=== PATIENT | male | born 1950 | race Caucasian/White ===

== ENCOUNTER → 2016-06-21 | Outpatient (CLI) | payer OTHER ==
--- NOTE | 2016-06-21 13:35 | Diagnostic Imaging Report ---
PA and lateral views of the chest. INDICATION: Bradycardia. FINDINGS: The lungs are clear. Mild density in the left lung base is probably related to prominent pericardial fat pad. The heart size is at the upper limits of normal. No effusion or pneumothorax. The mediastinum and binh appear unremarkable. Mild degenerative changes and flowing anterior osteophytes are seen in the thoracic spine. IMPRESSION: No acute process. Dictated by: Dictated on workstation # [id number]
== END ==
LOC: RAD 13:17
PROVIDERS: ATTEND Nurse Practitioner Adult Health
DX: R00.1 Bradycardia, unspecified (principal)
CPT/HCPCS: 71020

== ENCOUNTER → 2016-07-04 | Outpatient (CLI) | payer OTHER | LOC: CARD 10:54 | PROVIDERS: ATTEND Internal Medicine Cardiovascular Disease | DX: R26.89 Other abnormalities of gait and mobility (principal); R07.89 Other chest pain; I10 Essential (primary) hypertension; Z87.891 Personal history of nicotine dependence; I45.19 Other right bundle-branch block; Z86.79 Personal history of other diseases of the circulatory system | CPT/HCPCS: 93225; 93226 ==

== ENCOUNTER → 2016-07-04 | Outpatient (CLI) | payer OTHER ==
--- NOTE | 2016-07-04 19:15 | ECHOCARDIOGRAPHY REPORT ---
DATE OF SERVICE: 07/04/2016 ECHOCARDIOGRAM ORDERING PHYSICIAN: Dr. Shane. PRIMARY CARE PROVIDER: Chapo Morales APRN CLINICAL DIAGNOSES: Chest discomfort, hypertension, tobacco use, right bundle-branch block. MEASUREMENTS: Left atrium, 3.9. Aortic root, 3.9. LV diameter diastolic, 4.6. IVS thickness, diastolic, 1.1. LVPW thickness, diastolic, 1.8. DESCRIPTION: This is a technically somewhat difficult study. Global left ventricular systolic function appears normal. On the views available, no distinct regional wall motion abnormalities seen. There is mild to moderate aortic valve sclerosis and calcification. There is no significant pericardial effusion seen on this study. Aortic valve structure is not very well visualized. Doppler imaging shows trivial tricuspid and pulmonic regurgitation. Pulmonary artery systolic pressure is estimated to be approximately 30 mmHg. Doppler imaging also shows trivial mitral regurgitation. There is no Doppler evidence of significant valvular stenosis. Subcostal views are not available. The study is not adequate for evaluation for intracardiac shunt. CONCLUSIONS: 1. Normal global left ventricular systolic function with ejection fraction approximately 60%. 2. Aortic valve sclerosis without significant aortic stenosis. 3. Trivial mitral, tricuspid and pulmonic regurgitation. 4. No evidence of significant valvular stenosis. 5. Pulmonary artery systolic pressure is estimated to be 30 to 35 mmHg. Job ID: [id number] DocumentID: [id number] Dictated Date: 07/04/2016 15:42:54 Atmospheric Chemist Date: 07/04/2016 17:19:50 Dictated By: DERICK SHANE MD, MA, FACP, FACC,
== END ==
LOC: CARD 10:51
PROVIDERS: ATTEND Internal Medicine Cardiovascular Disease
DX: R26.89 Other abnormalities of gait and mobility (principal); R07.89 Other chest pain; I10 Essential (primary) hypertension; Z87.891 Personal history of nicotine dependence; I45.19 Other right bundle-branch block; Z86.79 Personal history of other diseases of the circulatory system
CPT/HCPCS: 93306

== ENCOUNTER 2016-09-26 07:01 | Day surgery (SDC) | payer OTHER ==
[~2016-09-26] VITALS: Ht 182.9 cm; Wt 105.2 kg
[2016-09-26] MEDS ORDERED: HEParin (CATH LAB) 2,000 ML IV ONE (07:11)
[2016-09-26] MEDS ORDERED: NS IV 1000 ML 1,000 ML ONE (07:11)
[2016-09-26] MEDS ORDERED: NS IV 1000 ML 1,000 ML IV SCH ×2 (07:15→10:46)
[2016-09-26 07:30] VITALS: BP 174/92
[2016-09-26 07:38] LABS: RED BLOOD COUNT 4.97 10^6/uL (4.35-5.85); RED CELL DISTRIBUTION WIDTH 13.5 % (10.0-14.5); WHITE BLOOD COUNT 7.9 10^3/uL (4.3-11.0)
[2016-09-26 07:47] LABS: INR 0.9 (0.8-1.4); PROTHROMBIN TIME PATIENT 12.4 SEC (12.2-14.7)
[2016-09-26] MEDS ORDERED: OMEG-160 PO (07:51)
[2016-09-26] MEDS ORDERED: ASPI-586 PO (07:51)
[2016-09-26] MEDS ORDERED: ATEN50TA PO (07:51)
[2016-09-26] MEDS ORDERED: LISI40TA PO (07:51)
[2016-09-26] MEDS ORDERED: SIMV40TA4 PO (07:51)
[2016-09-26] MEDS ORDERED: MIDAZOLAM 5 MG/5 ML (VERSED) VIAL ONE (07:55)
[2016-09-26] MEDS ORDERED: fentaNYL INJECTION 100 MCG/2 ML AMP ONE ×2 (07:55→09:57)
[2016-09-26] MEDS ORDERED: diphenhydrAMINE 50 MG/ML INJ (BENADRYL) ONE (07:55)
[2016-09-26 07:56] LABS: ALANINE AMINOTRANSFERASE 29 U/L (0-55); ALBUMIN 4.2 GM/DL (3.2-4.5); ANION GAP 10 MMOL/L (5-14); ASPARTATE AMINO TRANSFERASE 20 U/L (5-34); BILIRUBIN,TOTAL 0.4 MG/DL (0.1-1.0); BLOOD UREA NITROGEN 15 MG/DL (7-18); BUN/CREATININE RATIO 17; CALCIUM 9.4 MG/DL (8.5-10.1); CARBON DIOXIDE 24 MMOL/L (21-32); CHLORIDE 106 MMOL/L (98-107); CHOLESTEROL 167 MG/DL (< 200); DIRECT LDL 115 MG/DL (1-129); GFR ESTIMATED > 60; GLUCOSE 120 MG/DL (70-105); POTASSIUM 3.9 MMOL/L (3.6-5.0); SODIUM 140 MMOL/L (135-145); TOTAL PROTEIN 7.1 GM/DL (6.4-8.2); TRIGLYCERIDES 64 MG/DL (<150); VLDL CHOLESTEROL 13 MG/DL (5-40)
[2016-09-26] MEDS ORDERED: SILD100T PO (08:59)
[2016-09-26] MEDS ORDERED: NITROGLYCERIN DRIP 25 MG/D5W 0 ML IV ONE (09:25)
[2016-09-26] MEDS ORDERED: HEParin 1000 UNIT/ML (10ML VIAL) FOR BOLUS ONE (09:25)
[2016-09-26] MEDS ORDERED: NS (IVPB) 250 ML ONE (10:08)
[2016-09-26] MEDS ORDERED: niCARdipine 25 MG/10 ML (CARDENE) AMP IV ONE (10:08)
--- OUTSIDE RECORDS SUMMARY | 2016-09-26 10:24 | XMS REPORT | Continuity of Care Document ---
Author Author [facility] Organization [facility] Address Unknown Phone Unavailable Allergies Medications Problems Date Dx Coded Attending Type Code Diagnosis Diagnosed By 06/21/2016 GILBERTO JOHNSON SPEECH TEACHER Ot 729.5 PAIN IN LIMB 06/30/2016 ALEXGILBERTO SPEECH TEACHER Ot 729.5 PAIN IN LIMB 06/30/2016 ALEX, GILBERTO SPEECH TEACHER Ot R00.1 BRADYCARDIA, UNSPECIFIED 06/30/2016 ALEX, GILBERTO SPEECH TEACHER Ot R00.1 BRADYCARDIA, UNSPECIFIED 07/04/2016 ALEX, GILBERTO SPEECH TEACHER Ot R00.1 BRADYCARDIA, UNSPECIFIED 07/04/2016 ALEX, GILBERTO SPEECH TEACHER Ot R00.1 BRADYCARDIA, UNSPECIFIED 07/07/2016 ALEX, GILBERTO SPEECH TEACHER Ot R00.1 BRADYCARDIA, UNSPECIFIED 07/11/2016 ALBERTO FLORES FACC, DERICK SERVINP CCDS Ot I10 ESSENTIAL (PRIMARY) HYPERTENSION 07/11/2016 ALBERTO FLORES FACC, DERICK SERVINP CCDS Ot I45.19 OTHER RIGHT BUNDLE-BRANCH BLOCK 07/11/2016 ALBERTO FLORES FACC, DERICK SERVINP CCDS Ot R07.89 OTHER CHEST PAIN 07/11/2016 ALBERTO FLORES FACC, DERICK FACP CCDS Ot R26.89 OTHER ABNORMALITIES OF GAIT AND MOBILITY 07/11/2016 ALBERTO FLORES FACC, DERICK FACP CCDS Ot Z86.79 PERSONAL HISTORY OF OTHER DISEASES OF TH 07/11/2016 DERICK DOMINGUEZ MD, FACC FACP CCDS Ot Z87.891 PERSONAL HISTORY OF NICOTINE DEPENDENCE 07/11/2016 GILBERTO JOHNSON SPEECH TEACHER Ot 729.5 PAIN IN LIMB 07/11/2016 GILBERTO JOHNSON SPEECH TEACHER Ot R00.1 BRADYCARDIA, UNSPECIFIED 07/11/2016 DERICK DOMINGUEZ MD, FACCP CCDS Ot I10 ESSENTIAL (PRIMARY) HYPERTENSION 07/11/2016 DERICK DOMINGUEZ MD, FACCP CCDS Ot I45.19 OTHER RIGHT BUNDLE-BRANCH BLOCK 07/11/2016 ALBERTO MD FACC, ALI FACP CCDS Ot R07.89 OTHER CHEST PAIN 07/11/2016 ALBERTO SERVINC, ALI FACP CCDS Ot R26.89 OTHER ABNORMALITIES OF GAIT AND MOBILITY 07/11/2016 ALBERTO FLORES FACC, ALI FACP CCDS Ot Z86.79 PERSONAL HISTORY OF OTHER DISEASES OF 07/11/2016 ALBERTO FLORES FACC, ALI FACP CCDS Ot Z87.891 PERSONAL HISTORY OF NICOTINE DEPENDENCE 07/11/2016 ALBERTO FLORES FACC, ALI FACP CCDS Ot I10 ESSENTIAL (PRIMARY) HYPERTENSION 07/11/2016 ALBERTO FLORES FACC, ALI FACP CCDS Ot I45.19 OTHER RIGHT BUNDLE-BRANCH BLOCK 07/11/2016 ALBERTO FLORES FACC, ALI FACP CCDS Ot R07.89 OTHER CHEST PAIN 07/11/2016 ALBERTO FLORES FACC, ALI FACP CCDS Ot R26.89 OTHER ABNORMALITIES OF GAIT AND MOBILITY 07/11/2016 ALBERTO FLORES FACC, ALI FACP CCDS Ot Z86.79 PERSONAL HISTORY OF OTHER DISEASES OF 07/11/2016 ALBERTO FLORES FACC, ALI FACP CCDS Ot Z87.891 PERSONAL HISTORY OF NICOTINE DEPENDENCE 07/12/2016 ALBERTO FLORES FACC, ALI FACP CCDS Ot I10 ESSENTIAL (PRIMARY) HYPERTENSION 07/12/2016 ALBERTO FLORES FACC, ALI FACP CCDS Ot I45.19 OTHER RIGHT BUNDLE-BRANCH BLOCK 07/12/2016 ALBERTO FLORES FACC, ALI FACP CCDS Ot R07.89 OTHER CHEST PAIN 07/12/2016 ALBERTO FLORES FACC, ALI FACP CCDS Ot R26.89 OTHER ABNORMALITIES OF GAIT AND MOBILITY 07/12/2016 ALBERTO FLORES FACC, ALI FACP CCDS Ot Z86.79 PERSONAL HISTORY OF OTHER DISEASES OF 07/12/2016 ALBERTO FLORES FACC, ALI FACP CCDS Ot Z87.891 PERSONAL HISTORY OF NICOTINE DEPENDENCE 09/22/2016 GILBERTO JOHNSON Ot 729.5 PAIN IN LIMB 09/22/2016 GILBERTO JOHNSON Ot R00.1 BRADYCARDIA, UNSPECIFIED 09/22/2016 ALBERTO FLORES FACC, ALI FACP CCDS Ot I10 ESSENTIAL (PRIMARY) HYPERTENSION 09/22/2016 ALBERTO FLORES FACC, ALI FACP CCDS Ot I45.19 OTHER RIGHT BUNDLE-BRANCH BLOCK 09/22/2016 ALBERTO FLORES FACC, DERICK FACP CCDS Ot R07.89 OTHER CHEST PAIN 09/22/2016 ALBERTO FLORES FACC, DERICK FACP CCDS Ot R26.89 OTHER ABNORMALITIES OF GAIT AND MOBILITY 09/22/2016 ALBERTO FLORES FACC, DERICK FACP CCDS Ot Z86.79 PERSONAL HISTORY OF OTHER DISEASES OF TH 09/22/2016 DERICK DOMINGUEZ MD, FACC FACP CCDS Ot Z87.891 PERSONAL HISTORY OF NICOTINE DEPENDENCE Procedures Results Encounters ACCT No. Visit Date/Time Discharge Status Pt. Type Provider Facility Loc./Unit Complaint [id number] 07/06/2016 10:00:00 2016 23:59:59 CLS Preadmit DERICK DOMINGUEZ MD, FACC FACP CCDS [facility] CARD R26.89 CLAUDICATION [id number] 07/04/2016 10:54:00 2016 23:59:59 CLS Outpatient DERICK DOMINGUEZ MD, FACC FACP CCDS [facility] CARD R26.89 CLAUDICATION [id number] 07/04/2016 10:51:00 2016 23:59:59 CLS Outpatient DERICK DOMINGUEZ MD, FACC FACP CCDS [facility] CARD R26.89 CLAUDICATION [id number] 06/21/2016 13:17:00 2016 23:59:59 CLS Outpatient GILBERTO JOHNSON [facility] RAD BRADYCARDIA [id number] 10/16/2013 14:24:00 2013 23:59:59 CLS Outpatient GILBERTO JOHNSON [facility] RAD PAIN IN LOWER LIMBS [id number] 09/26/2016 08:00:00 PEN Preadmit DERICK DOMINGUEZ MD, FACC FACP CCDS [facility] CATH CLAUDICATION,PVD,BILAT LEG DISCOMFORT
[2016-09-26] MEDS ORDERED: CLOPIDOGREL 300 MG (PLAVIX) TABLET PO ONE (10:28)
[2016-09-26] MEDS ORDERED: ASPIRIN 81 MG CHEW (CHILDREN'S ASA) ONE (10:29)
--- NOTE | 2016-09-26 10:46 | Cardiac Procedure Note-CS/ASA ---
Pre-Procedure Note Pre-Op Procedure Note H&P Reviewed The H&P was reviewed, patient examined and no changes noted. Date H&P Reviewed: Sep 26, 2016 Time H&P Reviewed: 08:45 Conscious Sedation Pre-Proced Time Reviewed: 08:45 ASA Class: 3 Airway Mallampati Classification: (navajo appropriate class) I. II. III, IV Lungs Heart ASA score ASA 1: a normal healthy patient ASA 2: a patient with a mild systemic disease (mid diabetes, controlled hypertension, obesity ASA 3: a patient with a severe systemic disease that limits activity (angina , COPD, prior Myocardial infarction) ASA 4: a patient with an incapacitating disease that is a constant threat to life (CHF, renal failure) ASA 5: a moribund patient not expected to survive 24 hrs. (ruptured aneurysm) ASA 6: a declared brain patient whose organs are being harvested. For emergent operations, add the letter E after the classification Grade 3 Sedation Plan: Analgesia, Amnesia, Plan communicated to team members, Discussed options with patient/fam, Discussed risks with patient/fam Note The patient is an appropriate candidate to undergo the planned procedure, sedation, and anesthesia. The patient immediately re-assessed prior to indication. DERICK DOMINGUEZ MD FACP FAC CCDS Sep 26, 2016 10:46
[2016-09-26 10:49] VITALS: BP 120/75
[2016-09-26] MEDS ORDERED: PATIENT MAY USE OWN MEDS, ALL PO SCH (11:00)
[2016-09-26] MEDS ORDERED: ACETAMINOPHEN 325 MG TABLET/CAPLET (TYLENOL) PO PRN (11:00)
[2016-09-26 11:30] VITALS: BP 131/81
--- NOTE | 2016-09-26 11:49 | OPERATIVE REPORT ---
DATE OF SERVICE: 09/26/2016 PERIPHERAL ANGIOGRAPHY AND INTERVENTION REPORT PROCEDURE: Peripheral angiography and intervention. The patient a 66-year-old man who has leg claudication, considerably more on the right side, who was found to have moderate to severe peripheral arterial disease on noninvasive imaging. Peripheral angiography was carried out today. Informed consent was obtained for peripheral angiography and ad hoc peripheral intervention, if needed. PROCEDURE: The patient was brought to the cardiac catheterization laboratory in a fasting state. The left groin was prepared and draped in the usual sterile fashion. Lidocaine 1% local anesthesia. Modified Seldinger technique was used to advance a 5-German sheath in the right femoral artery. We performed abdominal aortic angiography with the pigtail catheter placed at the level of L1. We performed bilateral leg artery angiography with runoff to the level of the feet with the pigtail catheter placed at the level of the aortoiliac bifurcation. We then performed selective angiography of the right ostial common iliac artery with selective engagement with a crossover catheter (contralateral artery). We then advanced a Storq wire into the right superficial femoral artery and removed the crossover catheter and advanced a straight catheter into the mid portion of the right superficial femoral artery (contralateral artery) and performed selective angiography of the right superficial femoral artery with a runoff down to the level of the foot PERCUTANEOUS INTERVENTION TO THE RIGHT SUPERFICIAL FEMORAL ARTERY: We had noted approximately 70% long stenosis in the right superficial femoral artery. It was not clear if this was of hemodynamic significance. We performed a pullback across the lesion with a straight catheter. This indicated a pressure gradient across the lesion of 40 to 50 mmHg. This indicated that the lesion indeed was significant and probably in the range of 80 to 90%. Therefore, we proceeded with percutaneous intervention to the vessel because this leg is also associated with claudication. We advanced a long stork wire across the lesion and the tip was placed in the right popliteal artery and we were then able to exchange the 5-German sheath over this wire for a 45 cm 6-German sheath the tip of which was placed in the proximal portion of the right superficial femoral artery and we were then able to deliver balloons over the wire which was already in position. We carried out balloon angioplasty with an [place] 6.0 x 150 mm balloon and balloon angioplasty was carried out with this balloon in two stages to cover the entire lesion. Subsequent angiography revealed improvement of stenosis to approximately 30% residual. To further improve snf outcome, we then proceeded with drug-eluting ballooning of this long lesion with Lutonix 6.0 x 150 mm balloon. This was also accomplished and two stages. The balloon was then removed. Subsequent angiography revealed less than 20% stenosis at the previous site of 80-90% stenosis. For a short while, the flow appeared somewhat slower than what we started out with. Therefore, we gave 2 mg of intraarterial nicardipine and 1000 units of intraarterial heparin through the sheath. We had also given 7000 units of intravenous heparin at the beginning of the procedure. Following intraarterial nicardipine and heparin, the flow was normal and the flow was brisk down to the level of foot and the 80-90% stenosis was seen to be less than 20% in the left superficial femoral artery. At this point, we exchanged the 6-German sheath for a short 6-German sheath and carried out angiography of the left femoral artery and we were able to use Mynx with hemostasis. He tolerated the procedure well. ABDOMINAL AORTIC ANGIOGRAPHY: Abdominal aortic angiography indicated infrarenal abdominal aortic ectasia without significant aneurysm formation. There is atherosclerosis and calcification of the abdominal aorta and the proximal portion of the iliac arteries. There did not appear to be significant renal artery stenosis. The superior mesenteric and the celiac arteries are not visualized in the view obtained. BILATERAL LEG ARTERY ANGIOGRAPHY: Bilateral leg artery angiography indicated patent iliac arteries, patent common femoral arteries, patent superficial and deep femoral arteries on both sides. The superficial femoral artery on the right side had 80 to 90% stenosis (as detailed above) to which successful balloon angioplasty was carried out, including Lutonix drug-eluting ballooning with a reduction of stenosis to less than 20%. The left superficial femoral artery has notable up to 60% stenosis. The popliteal arteries are intact on both sides. On both sides, there is a 2-vessel runoff. The anterior tibial and the peroneal arteries are intact. The posterior tibial arteries appeared occluded or severely diseased on both sides. SELECTIVE ANGIOGRAPHY OF THE RIGHT COMMON ILIAC ARTERY: Selective angiography of the right common iliac artery indicates 30% ostial stenosis of the right common iliac. SELECTIVE ANGIOGRAPHY OF THE RIGHT SUPERFICIAL FEMORAL ARTERY: Selective angiography of the right superficial femoral artery showed approximately 70% mid vessel stenosis but we noted a pressure gradient across it of 40 to 50 mmHg indicating that this was probably an 80 to 90% lesion and subsequently, intervention was carried out to this lesion which is described above. The right popliteal artery is intact and there is 2-vessel runoff. The anterior tibial and the peroneal arteries appear intact and without significant disease. The posterior tibial artery is occluded or severely diseased CONCLUSIONS: 1. Peripheral arterial disease as detailed above. It mainly consists of 80-90% mid vessel stenosis in the right superficial femoral artery to which successful balloon angioplasty, including drug-eluting balloon angioplasty was carried out today with the reduction of stenosis to less than 20% and normal antegrade flow. There is bilateral occlusion of the posterior tibial arteries and there is a 2-vessel runoff in both legs. 2. The left superficial femoral artery has multiple, up to 60% stenoses. Job ID: [id number] DocumentID: [id number] Dictated Date: 09/26/2016 10:38:26 Patcher Helper Date: 09/26/2016 11:25:55 Dictated By: DERICK DOMINGUEZ MD, MA, FACP, FACC,
[2016-09-26 12:30] VITALS: BP 154/79
[2016-09-26 13:00] VITALS: BP 132/82
[2016-09-26] MEDS ORDERED: CLOP75TA28 PO (15:13)
--- NOTE | 2016-09-26 15:16 | Discharge Inst-Cardiology ---
Discharge Inst-Cardiac Discharge Medications New Medications: Clopidogrel Bisulfate (Clopidogrel) 75 Mg Tablet 75 MG PO DAILY, #30 TAB 1 Refill Continued Medications: Aspirin (Aspir 81) 81 Mg Tablet.dr 81 MG PO DAILY, TAB Atenolol (Atenolol) 50 Mg Tablet 50 MG PO DAILY, TAB Lisinopril (Lisinopril) 40 Mg Tablet 20 MG PO DAILY, TAB [place]-3/Dha/Epa/Fish Oil (Fish Oil 1,000 mg Softgel) 1 Each Capsule 1 EACH PO DAILY, CAP Sildenafil Citrate (Viagra) 100 Mg Tablet 100 MG PO PRN, TAB Simvastatin (Simvastatin) 40 Mg Tablet 20 MG PO, TAB New, Converted or Re-Newed RX: RX Given to Pt/Family Patient Instructions Patient Instructions: Please schedule f/u appt to see Dr. Shane in 2 weeks CLYDE HINOJOSA Sep 26, 2016 15:16
[2016-09-27] MEDS ORDERED: OMEGA 3 (FISH OIL) 1000 MG CAP PO SCH (09:00)
[2016-09-27] MEDS ORDERED: CLOPIDOGREL 75 MG (PLAVIX) TABLET PO SCH (09:00)
[2016-09-27] MEDS ORDERED: ASPIRIN E.C. 81 MG (ECOTRIN) TAB PO SCH (09:00)
[2016-09-27] MEDS ORDERED: lisINopril 20 MG (ZESTRIL) TAB PO SCH (09:00)
[2016-09-27] MEDS ORDERED: ATENOLOL 50 MG (TENORMIN) TAB PO SCH (09:00)
[2016-09-27] MEDS ORDERED: SIMvastatin 20 MG (ZOCOR) TAB PO SCH (09:00)
== END 2016-09-26 16:05 | disposition home or self-care (01) ==
LOC: CATH 07:01 → ICU 10:45 → CATH 16:05
PROVIDERS: ATTEND Internal Medicine Cardiovascular Disease
DX: I70.213 Atherosclerosis of native arteries of extremities with intermittent claudication, bilateral legs (principal); I45.10 Unspecified right bundle-branch block; R07.89 Other chest pain; E78.5 Hyperlipidemia, unspecified; R00.2 Palpitations; Z87.891 Personal history of nicotine dependence; Z79.899 Other long term (current) drug therapy
CPT/HCPCS: 36247; 36415; 37224; 75625; 75716; 75774; 80053; 80061; 85027; 85347; 85610; 85730; 87081; 93005

== ENCOUNTER → 2021-06-10 | Outpatient (CLI) | payer OTHER ==
[~2021-06-10] VITALS: Ht 182 cm; Wt 100.0 kg
[~2021-06-10] MED LIST: ASPI-586 PO; ATEN50TA PO; CLOP75TA28 PO; LISI40TA9 PO; OMEG-160 PO; REGADENOSON 0.4 MG/5 ML SYR (LEXISCAN) IV ONE; SILD100T PO; SIMV40TA25 PO
[2021-06-10] MEDS: CATHETER FLUSH 10 ML SYR IVP PRN ×2 (07:54→09:14)
[2021-06-10 08:56] VITALS: BP 222/107
== END ==
LOC: CARD 08:15
PROVIDERS: ATTEND Internal Medicine Cardiovascular Disease
DX: R07.89 Other chest pain (principal)
CPT/HCPCS: 78452; 93017